=== PATIENT | male | born 1960 | race Caucasian/White ===

== ENCOUNTER 2019-01-16 13:02 | Outpatient (CLI) | payer BC, OTHER ==
[~2019-01-16 13:02] MED LIST: REGADENOSON 0.4 MG/5 ML SYRINGE ONE
== END 2019-01-16 23:59 | disposition home or self-care (01) ==
LOC: CFH 13:02
PROVIDERS: ATTEND Internal Medicine Cardiovascular Disease
DX: I25.9 Chronic ischemic heart disease, unspecified (principal); I10 Essential (primary) hypertension
CPT/HCPCS: 78452; 93017; A9502; J2785

== ENCOUNTER 2019-01-29 10:32 | Day surgery (SDC) | payer OTHER ==
[~2019-01-29] VITALS: Ht 175.3 cm; Wt 147.7 kg
[2019-01-29 10:56] VITALS: BP 146/91
[2019-01-29] MEDS ORDERED: PLEASE ENTER HEIGHT AND WEIGHT MC SCH (11:00)
[2019-01-29] MEDS ORDERED: SODIUM CHLORIDE 0.9% 1,000 ML IV SCH ×2 (11:00→13:47)
[2019-01-29] MEDS ORDERED: METF10007 PO (11:11)
[2019-01-29] MEDS ORDERED: INSU100I17 SC (11:11)
[2019-01-29] MEDS ORDERED: LEVO100T5 PO (11:11)
[2019-01-29] MEDS ORDERED: LISI-167 PO (11:11)
[2019-01-29] MEDS ORDERED: ATOR40TA78 PO (11:14)
[2019-01-29] MEDS ORDERED: ASPI81TA45 PO (11:14)
[2019-01-29] MEDS ORDERED: MULT-658 PO (11:14)
[2019-01-29] MEDS ORDERED: INSU300I3 SC (11:14)
[2019-01-29] MEDS ORDERED: MIDAZOLAM 1 MG/ML, 5ML ONE (12:32)
[2019-01-29] MEDS ORDERED: FENTANYL PF 100 MCG/2ML ONE ×2 (12:32→13:24)
[2019-01-29] MEDS ORDERED: BIVALIRUDIN 250 MG ONE (12:33)
[2019-01-29] MEDS ORDERED: LIDOCAINE 2%, 20ML ONE (12:33)
[2019-01-29] MEDS ORDERED: VERAPAMIL 2.5 MG/ML, 2ML ONE (12:33)
[2019-01-29] MEDS ORDERED: HEPARIN 1,000 UNITS/ML, 10ML ONE (12:33)
== END 2019-01-29 15:41 | disposition home or self-care (01) ==
LOC: CACL 10:32
PROVIDERS: ATTEND Internal Medicine Cardiovascular Disease
DX: I25.119 Atherosclerotic heart disease of native coronary artery with unspecified angina pectoris (principal); I25.83 Coronary atherosclerosis due to lipid rich plaque; I11.9 Hypertensive heart disease without heart failure; E11.9 Type 2 diabetes mellitus without complications; E78.2 Mixed hyperlipidemia; E03.9 Hypothyroidism, unspecified; G47.33 Obstructive sleep apnea (adult) (pediatric); E66.9 Obesity, unspecified; Z68.42 Body mass index [BMI] 45.0-49.9, adult; Z79.4 Long term (current) use of insulin; Z79.890 Hormone replacement therapy; Z79.82 Long term (current) use of aspirin; Z79.899 Other long term (current) drug therapy; Z88.8 Allergy status to other drugs, medicaments and biological substances; Z82.49 Family history of ischemic heart disease and other diseases of the circulatory system
CPT/HCPCS: 82962; 93306; 93458; 99156; 99157; C1769; C1894; J0583; J1644; J2250; J3010; Q9967